=== PATIENT | male | born 1980 | race Two or more races ===

== ENCOUNTER 2024-06-02 16:48 | Inpatient (IN) | payer OTHER ==
[2024-06-02 14:27] VITALS: BMI 35.4
[~2024-06-02 16:48] MED LIST: ACETAMINOPHEN 325 MG TABLET (FP) PO PRN; BENZOCAINE/MENTHOL (CHLORASEPTIC ) LOZENGE MM PRN; BENZONATATE 200 MG CAPSULE PO PRN; BISMUTH SUBSALICYLATE 524 MG/30 ML PO PRN; DICYCLOMINE HCL 10 MG CAPSULE PO PRN; IBUPROFEN 400 MG TABLET (FP) PO PRN; LOPERAMIDE HCL 2 MG CAPSULE PO PRN; NALOXONE (NARCAN) HCL 4 MG/0.1 ML SPRAY NS PRN; NICOTINE POLACRILEX 2 MG GUM BUC PRN; POLYETHYLENE GLYCOL (HEALTHYLAX) 3350 17 GM PACKET PO PRN; guaiFENesin 600 MG TABLET.ER (FP) PO PRN
[2024-06-02] MEDS ORDERED: METHOCARBAMOL 500 MG TABLET ONE (23:31)
[2024-06-02] MEDS: IBUPROFEN 600 MG TABLET (FP) PO PRN (23:31)
[2024-06-02] MEDS ORDERED: IBUPROFEN 600 MG TABLET (FP) PO ONE (23:31)
[2024-06-02] MEDS: METHOCARBAMOL 500 MG TABLET PO PRN (23:31)
[2024-06-02] MEDS: THIAMINE 100 MG TABLET PO SCH (23:54)
[2024-06-02] MEDS: MELATONIN 5 MG TABLETS PO SCH (23:54)
[2024-06-03] MEDS ORDERED: DOXYCYCLINE HYCLATE 100 MG CAPSULE PO SCH ×2 (00:30→10:00)
[2024-06-03] MEDS: NIFEdipine E.R 60 MG TABLET PO SCH ×2 (00:34→00:42)
[2024-06-03] MEDS: NALTREXONE HCL 50 MG TABLET PO ONE ×2 (00:34→00:42)
[2024-06-03] MEDS: AMOX TR/POT CLAV 875MG/125MG TABLETS (FP) PO SCH (00:35)
[2024-06-03] MEDS: DOXYCYCLINE HYCLATE 100 MG CAPSULE PO SCH (00:52)
[2024-06-03] MEDS: hydrOXYzine PAMOATE 25 MG CAPSULE (FP) PO PRN (02:49)
[2024-06-03] MEDS ORDERED: chlordiazePOXIDE HCL 25 MG CAPSULE PO PRN (09:35)
[2024-06-03] MEDS: PRENATAL VITAMINS W/ FOLIC ACID TABLET (FP) PO SCH (10:19)
[2024-06-03] MEDS: NALTREXONE HCL 50 MG TABLET PO SCH (10:19)
[2024-06-03] MEDS: chlordiazePOXIDE HCL 25 MG CAPSULE PO SCH (10:24)
[2024-06-03] MEDS: DOXYCYCLINE HYCLATE 100 MG TABLET PO SCH (11:09)
[2024-06-03 13:08] LABS: CHLORIDE 103 mmol/L (98-107); POTASSIUM 3.7 mmol/L (3.5-5.1); SODIUM 140 mmol/L (136-145)
[2024-06-03 13:12] LABS: HEMATOCRIT 34.3 % (35.4-49); HEMOGLOBIN 11.7 GM/dL (11.7-16.9); MCHC 34.2 g/dl (32.0-35.9); MEAN CELL VOLUME 96.4 fl (80-96); MEAN PLT VOLUME 7.8 fl (7.5-11.1); PLATELET COUNT 241 10^3/uL (134-434); RBC 3.55 M/mm3 (4.00-5.60); WHITE BLOOD COUNT 3.5 K/mm3 (4.0-10.0)
[2024-06-03 13:16] LABS: ALBUMIN 3.5 g/dl (3.4-5.0); ANION GAP 5 mmol/L (4-13); CO2 32 mmol/L (21-32); GLUCOSE,RANDOM 78 mg/dL (74-106)
[2024-06-03 13:19] LABS: CREATININE 0.8 mg/dL (0.55-1.3); SGOT/AST 47 U/L (15-37); SGPT/ALT 70 U/L (13-61)
[2024-06-03 13:21] LABS: BILIRUBIN,TOTAL 0.5 mg/dL (0.2-1); TOT PROT 6.1 g/dl (6.4-8.2)
[2024-06-03 13:22] LABS: ALK PHOS 53 U/L (45-117)
[2024-06-03] MEDS ORDERED: LORATADINE 10 MG TABLET PO PRN (13:39)
[2024-06-03] MEDS: LOSARTAN POTASSIUM 50 MG TABLET PO ONE (14:59)
[2024-06-03] MEDS: MELATONIN 5 MG TABLETS PO SCH (22:32)
[2024-06-04] MEDS: chlordiazePOXIDE HCL 25 MG CAPSULE PO SCH (05:58)
[2024-06-04] MEDS: LIDOCAINE 5% TOPICAL PATCH TP SCH (09:29)
[2024-06-04] MEDS: LORATADINE 10 MG TABLET PO SCH (10:27)
[2024-06-04] MEDS: FLUTICASONE PROP 0.05% 16 GM NASAL SPRAY NS SCH (10:31)
[2024-06-04] MEDS: ONDANSETRON *ODT* 4 MG TABLET SL PRN (12:11)
[2024-06-04] MEDS: TRIMETHOBENZAMIDE HCL 200MG/2ML INJ IM PRN (14:52)
[2024-06-04] MEDS: MAG HYDROX/AL HYDROX/SIMETH 30 ML UNIT-DOSE CUP PO PRN (18:40)
[2024-06-04] MEDS: MAGNESIUM HYDROX 2400MG/30ML ORAL SUSPENSION 30 ML CUP PO PRN (20:22)
[2024-06-04 20:45] VITALS: RESP 16; TEMP 97.1
[2024-06-04] MEDS: cloNIDine HCL 0.1 MG TABLET PO ONE (21:21)
[2024-06-04] MEDS: LIDOCAINE PATCH REMOVAL MC SCH (22:56)
[2024-06-05 00:04] VITALS: BP 125/70; PULSE 70
[2024-06-05] MEDS ORDERED: chlordiazePOXIDE HCL 10 MG CAPSULE PO SCH (05:00)
[2024-06-05] MEDS ORDERED: LIDOCAINE 5% TOPICAL PATCH TP SCH (06:00)
[2024-06-05] MEDS ORDERED: BACITRACIN 0.9 GM PACKET TP SCH (10:00)
[2024-06-06] MEDS ORDERED: chlordiazePOXIDE HCL 10 MG CAPSULE PO SCH (05:00)
[2024-06-07] MEDS ORDERED: chlordiazePOXIDE HCL 10 MG CAPSULE PO ONE (05:00)
== END 2024-06-05 01:39 | disposition left against medical advice (07) | DRG 894 ==
LOC: YASAS 16:48 → Y6N 22:21
PROVIDERS: ADMIT Allergy & Immunology; ATTEND Allergy & Immunology
PROC: HZ2ZZZZ Detoxification Services for Substance Abuse Treatment (ICD-10-PCS; principal; 2024-06-02)
DX: F11.23 Opioid dependence with withdrawal (principal); F14.20 Cocaine dependence, uncomplicated; F19.282 Other psychoactive substance dependence with psychoactive substance-induced sleep disorder; F10.230 Alcohol dependence with withdrawal, uncomplicated; F12.20 Cannabis dependence, uncomplicated; F17.210 Nicotine dependence, cigarettes, uncomplicated; F25.9 Schizoaffective disorder, unspecified; F19.24 Other psychoactive substance dependence with psychoactive substance-induced mood disorder; I10 Essential (primary) hypertension; Z88.8 Allergy status to other drugs, medicaments and biological substances
CPT/HCPCS: 36415; 80053; 80305; 80307; 83036; 85027; 86780; 93005; 93010; Q0162